=== PATIENT | male | born 1970 | race Caucasian/White ===

== ENCOUNTER 2019-02-19 00:37 | Emergency (ER) | payer SELFPAY ==
[~2019-02-19] VITALS: Ht 165.1 cm; Wt 85.3 kg
[2019-02-19 00:41] VITALS: Ht 165.1 cm; Wt 85.3 kg
[2019-02-19 01:45] VITALS: BP 122/87
== END 2019-02-19 01:45 | disposition home or self-care (01) ==
LOC: ED 00:37
DX: J02.9 Acute pharyngitis, unspecified (principal); H92.01 Otalgia, right ear; Z90.89 Acquired absence of other organs
CPT/HCPCS: J1885